=== PATIENT | female | born 1965 | race Caucasian/White ===

== ENCOUNTER 2018-12-28 20:00 | Emergency (ER) | payer OTHER ==
[~2018-12-28] VITALS: Ht 157.5 cm; Wt 93.9 kg
[2018-12-28 20:20] VITALS: Ht 157.5 cm; Wt 93.9 kg
[2018-12-29 00:04] VITALS: BP 139/71
== END 2018-12-29 00:04 | disposition home or self-care (01) ==
LOC: ED 20:00
DX: M54.5 Low back pain (principal); G89.29 Other chronic pain; G43.909 Migraine, unspecified, not intractable, without status migrainosus; Z88.0 Allergy status to penicillin
CPT/HCPCS: J1100; J1885